=== PATIENT | male | born 1970 | race Two or more races ===

== ENCOUNTER 2016-10-11 06:30 | Day surgery (SDC) | payer OTHER ==
[~2016-10-11] VITALS: Ht 175.3 cm; Wt 93.4 kg
[~2016-10-11 06:30] MED LIST: ACETAMINOPHEN INTRAVENOUS 100 ML IV ONE
[2016-10-11] MEDS ORDERED: LIDOCAINE 2% 100 MG/5 ML SYRINGE. ONE (06:52)
[2016-10-11] MEDS ORDERED: ROCURONIUM 50 MG/5 ML VIAL. ONE (06:52)
[2016-10-11] MEDS ORDERED: PROPOFOL 100 ML IV ONE (06:52)
[2016-10-11] MEDS ORDERED: SUCCINYLCHOLINE 200 MG/10 ML VIAL. ONE (06:52)
[2016-10-11] MEDS ORDERED: fentaNYL PF VIAL 100 MCG/2 ML VIAL ONE (06:52)
[2016-10-11] MEDS ORDERED: fentaNYL PF VIAL 100 MCG/2 ML VIAL IV PRN ×2 (07:00)
[2016-10-11] MEDS ORDERED: LIDOCAINE 1% 1 ML SYRINGE. ID PRN (07:00)
[2016-10-11] MEDS ORDERED: ONDANSETRON PF 4 MG/2 ML VIAL. IV PRN (07:00)
[2016-10-11] MEDS ORDERED: HYDROmorphone 2 MG/ML VIAL IV PRN (07:00)
[2016-10-11] MEDS ORDERED: IV RINGERS,LACTATED 1000ML 1,000 ML IV SCH (07:00)
[2016-10-11] MEDS ORDERED: PROCHLORPERAZINE 10 MG/2 ML VIAL. IV PRN (07:00)
[2016-10-11] MEDS ORDERED: MORPHINE SULFATE 2 MG/ML DISP.SYRIN. IV PRN (07:00)
[2016-10-11] MEDS ORDERED: BUPIVACAINE-EPI 0.25%-1:200000 MPF 30 ML VIAL. ONE (07:22)
[2016-10-11] MEDS ORDERED: MIDAZOLAM HCL/PF 2 MG/2 ML VIAL. ONE (07:38)
[2016-10-11] MEDS ORDERED: DESFLURANE 61 TO 120 MINUTES IH ONE (08:09)
[2016-10-11] MEDS ORDERED: DEXAMETHASONE SOD PHOS 20 MG/5 ML VIAL. ONE (08:09)
[2016-10-11] MEDS ORDERED: ePHEDrine PF IN SALINE 50 MG/5 ML DISP.SYRIN IV ONE (08:09)
[2016-10-11] MEDS ORDERED: GLYCOPYRROLATE 1 MG/5 ML VIAL. ONE (08:11)
[2016-10-11] MEDS ORDERED: ONDANSETRON PF 4 MG/2 ML VIAL. ONE (08:12)
[2016-10-11] MEDS ORDERED: NEOSTIGMINE METHYLSULFATE 5 MG/5 ML SYRINGE. ONE (08:15)
--- NOTE | 2016-10-11 09:01 | DISCH ---
DISCHARGE INSTRUCTIONS Condition on Discharge Condition on Discharge: Stable Activity After Discharge Activity Instructions for Disc: Avoid exertion Other activity instructions: No lifting >20lbs for 2 weeks Diet after Discharge Diet after Discharge: Regular Wound Incision Care Other wound/incision instructi: Shelbie shower in 24 hours Contacting the after DC Call your doctor for: If your condition worsens Follow-Up Follow up with: Dr Solomon 2 weeks ALAN SOLOMON MD October 11, 2016 09:01
[2016-10-11] MEDS ORDERED: OXYC-323 PO (09:18)
[2016-10-11] MEDS ORDERED: OXYCODONE/APAP 5/325 TABLET. PO PRN ×2 (09:30)
--- NOTE | 2016-10-11 10:09 | OP ---
DATE OF SURGERY: 10/11/2016 PREOPERATIVE DIAGNOSIS: Left inguinal hernia and umbilical hernia. POSTOPERATIVE DIAGNOSIS: Left inguinal hernia and umbilical hernia. PROCEDURE: Robotic-assisted left inguinal hernia repair with mesh and umbilical hernia repair, open. SURGEON: William Solomon M.D. INDICATIONS: The patient is a 45-year-old gentleman who has complained of a bulge in his left groin, has been painful and a bulge at his umbilicus. Procedure of robotic-assisted laparoscopic left inguinal hernia repair with mesh as well as umbilical hernia repair was explained to the patient in detail. Risks, benefits were also discussed including bleeding, infection, injury to intra-abdominal contents, possibly sustaining further open operations. Alternatives of this procedure were also discussed with the patient who seemed to understand and gave verbal and written consent to have the procedure performed. DESCRIPTION OF PROCEDURE: The patient was taken to the operating room and placed in the supine position, general anesthesia was initiated. Once the patient was asleep and intubated, he was then placed in low lithotomy. His abdomen was prepped and draped in usual sterile fashion using ChloraPrep. An area in the left upper quadrant was injected with 0.25% Marcaine with epinephrine. Incision was made with an 11 blade scalpel and using a 5 mm Visiport, was placed under direct visualization into the abdomen. Pneumoperitoneum was achieved. Once this was complete, 5 mm port was placed within the abdomen, did show a small umbilical hernia with no incarceration as well as a left inguinal hernia. At this point, an area at the umbilicus was injected with 0.25% Marcaine with epinephrine. Incision was made with an 11 blade scalpel and a da Rama port was placed through the hernia defect. A second port was placed in the right mid abdomen and third port placed in the left mid abdomen under direct visualization. At this point, the da Rama robot was brought in between the patient's legs and docked to the ports. A grasper was placed and EndoShears scissors was also placed. At this point, the surgeon went to the robotic console. Using the grasper and the EndoShears scissors, the peritoneum over the left inguinal hernia was incised. The peritoneal flap was then propagated inferiorly and the hernia defect sac was reduced and its contents reduced. At this point, a ProGrip mesh was then placed over the hernia defect and inguinal floor. The peritoneum was then closed with a running V-Loc suture. At this point, surgeon returned to the surgical field, the da Rama robot was undocked and removed. The ports were all removed. The hernia defect at the umbilicus was closed with a #2 [id number] 0 Vicryl sutures and skin was reapproximated at all port sites with 4-0 subcuticular Monocryl. Mastisol, Steri-Strips, 4 x 4's and Medipore tape were applied as dressings. The patient was awakened, extubated in the operating room, taken to recovery in stable condition. All sponge, instrument counts listed as correct. Estimated blood loss 10 mL. WILLIAM SOLOMON MD DR: PAULINE/kelby JOB#: [id number] / [id number]
[2016-10-11 10:35] VITALS: BP 137/81
== END 2016-10-11 10:49 | disposition home or self-care (01) ==
LOC: SURG 06:30
PROVIDERS: ATTEND Surgery
DX: K40.90 Unilateral inguinal hernia, without obstruction or gangrene, not specified as recurrent (principal); K42.9 Umbilical hernia without obstruction or gangrene; Z72.89 Other problems related to lifestyle
CPT/HCPCS: 49650; 49652; C1781; J0131; J0330; J1100; J2250; J2405; J2704; J2710; J3010; J3490; S2900